=== PATIENT | female | born 1965 | race African-American/Black ===

== ENCOUNTER 2018-09-20 03:50 | Emergency (ER) | payer OTHER ==
[~2018-09-20] VITALS: Ht 167.6 cm; Wt 67.1 kg
[2018-09-20 04:09] VITALS: BP 105/76
[2018-09-20] MEDS ORDERED: Norco 5mg/325mg tab ONE (04:25)
--- NOTE | 2018-09-20 04:26 | Emergency Room Report ---
History of Present Illness General Chief Complaint: Lower Back Pain or Injury Source: Patient Present Illness HPI This is a 53-year-old female with history of asthma. She presents with chief complaint of left-sided back pain. Onset this afternoon. She was lifting something and was putting it down when she turned around and had acute onset of pain. Pain to the left lower back and radiating down her lateral aspect of her left leg. No fever chills. No trauma. No incontinence of bowel or urine. Is 9 out of 10. Worse with movement. Better with rest. Allergies: Coded Allergies: AZITHROMYCIN (Verified Allergy, Unknown, 09/20/18) Patient History Past Medical History: see triage record, old chart reviewed, asthma Past Surgical History: other Pertinent Family History: none Social History: Denies: smoking Last Menstrual Period: na Now: No Immunizations: other Reviewed Nursing Documentation: PMH: Agreed; PSxH: Agreed Nursing Documentation-PMH Past Medical History: No Stated History Review of Systems Eye: Denies: eye pain, blurred vision ENT: Denies: ear pain, nose congestion, throat swelling Respiratory: Denies: cough, shortness of breath Cardiovascular: Denies: chest pain, palpitations Gastrointestinal: Denies: abdominal pain, diarrhea, nausea, vomiting Musculoskeletal: Reports: back pain; Denies: joint pain Skin: Denies: rash Neurological: Denies: headache, numbness Endocrine: Denies: increased thirst, increased urine Hematologic/Lymphatic: Denies: easy bruising All Other Systems: negative except mentioned in HPI Physical Exam Vital Signs Date Time Temp Pulse Resp B/P (MAP) Pulse Ox O2 Delivery O2 Flow Rate FiO2 09/20/18 04:01 97.9 73 16 105/76 100 Room Air vitals normal Sp02 EP Interpretation: reviewed, normal General Appearance: well appearing, no apparent distress, alert Head: normocephalic, atraumatic Eyes: bilateral eye PERRL, bilateral eye EOMI ENT: hearing grossly normal, normal pharynx Neck: full range of motion, supple, no meningismus Respiratory: chest non-tender, lungs clear, normal breath sounds Cardiovascular #1: regular rate, rhythm, no murmur Gastrointestinal: normal bowel sounds, non tender, no mass, no organomegaly, no bruit, non-distended Musculoskeletal: gait/station normal, normal range of motion, tender - Tenderness and spasm of muscle of lumbar spine. Psychiatric: mood/affect normal Skin: warm/dry Medical Decision Making Diagnostic Impression: Primary Impression: Low back pain Qualified Codes: M54.42 - Lumbago with sciatica, left side ER Course This patient presents with lower back pain. No evidence of cauda equina syndrome, spinal or abscess or neoplastic process. Patient said that she still getting her menstrual peroid. May need ultrasound as an outpatient. We'll discharge home. CT/MRI/US Diagnostic Results CT/MRI/US Diagnostic Results : Imaging Test Ordered: CT abdomen and pelvis Last Vital Signs Date Time Temp Pulse Resp B/P (MAP) Pulse Ox O2 Delivery O2 Flow Rate FiO2 09/20/18 04:09 97.9 73 16 105/76 100 Room Air Status: improved Disposition: HOME, SELF-CARE Condition: Stable Scripts Ibuprofen* (MOTRIN*) 600 Mg Tablet 600 MG ORAL THREE TIMES A DAY, #30 TAB 0 Refills Prov: Jorden Najera MD 09/20/18 Hydrocodone/Acetaminophen 5-325* (HYDROCODONE/ACETAMINOPHEN 5-325*) 1 Each Tablet 1 TAB ORAL Q6H PRN for For Pain, #20 TAB 0 Refills Prov: Jorden Najera MD 09/20/18 Patient Instructions: Back Pain, Adult Additional Instructions: Follow-up your doctor in 7 days. No heavy lifting. No sudden movement. You have a 4 cm right ovarian cyst. May need and ultrasound as an outpatient. If symptom not improved, may need an MRI of the back. Jorden Najera MD Sep 20, 2018 04:26
[2018-09-20] MEDS ORDERED: Norco 5mg/325mg tab ORAL ONE (04:30)
[2018-09-20] MEDS ORDERED: IBUPROFEN600 MG ORAL (05:54)
[2018-09-20] MEDS ORDERED: HYDROCODON-ACE1 EA15 ORAL (05:54)
[2018-09-20 06:06] VITALS: BP 110/78
[2018-09-20 06:07] VITALS: BP 105/76
--- NOTE | 2018-09-20 11:47 | Diagnostic Imaging Report ---
Indications: Back pain for one day after lifting a package of bottled water Technique: Spiral acquisitions obtained through the lumbar spine. Multiplanar reconstructions were generated. No IV contrast utilized. Total dose length product 527.68 mGycm. CTDIvol(s) 14.28 mGy. Dose reduction achieved using automated exposure control Comparison: none Findings: Bony alignment is normal. Vertebral body heights are preserved. Disc spaces are preserved. There is transitional lumbosacral anatomy, with a transitional lumbosacral segment that will be referred to as S1. No acute fractures. No dislocations. There is mild facet arthrosis of L5-S1 on the right. No significant disc bulge or protrusion, spinal stenosis, or neural foraminal stenosis demonstrated. Incidental note is made of a 4.4 cm cyst in the right ovary. There is trace free cul-de-sac fluid. Also noted are bilateral intrarenal calculi. No hydronephrosis. Impression: No acute bony trauma 4.4 cm right ovarian cyst. Recommend follow-up with ultrasound in 6-12 weeks, per ACR guidelines Trace free cul-de-sac fluid Bilateral nonobstructive nephrolithiasis This agrees with the preliminary interpretation provided overnight by [facility]. The CT scanner at [facility] is accredited by the [employer] and the scans are performed using protocols designed to limit radiation exposure to as low as reasonably achievable to attain images of sufficient resolution adequate for diagnostic evaluation.
== END 2018-09-20 06:09 | disposition home or self-care (01) ==
LOC: EMR 04:11
DX: M54.42 Lumbago with sciatica, left side (principal); J45.909 Unspecified asthma, uncomplicated; Z88.1 Allergy status to other antibiotic agents
CPT/HCPCS: 72131; 99284